=== PATIENT | female | born 1990 | race African-American/Black ===

== ENCOUNTER 2018-11-17 13:36 | Inpatient (IN) | payer BC ==
[~2018-11-17] VITALS: Ht 175.3 cm; Wt 83.5 kg
[2018-11-17 13:38] VITALS: BP 157/92
[2018-11-17 13:55] LABS: URINE BLOOD 3+ (Negative); URINE CLARITY SL CLOUDY; URINE COLOR YELLOW; URINE GLUCOSE-RANDOM* NEGATIVE (Negative); URINE KETONES TRACE (Negative); URINE LEUKOCYTES TRACE (Negative); URINE NITRITE NEGATIVE (Negative); URINE PROTEIN (DIPSTICK) 2+ (Negative); URINE SPECIFIC GRAVITY 1.025 (1.005-1.035)
[2018-11-17 14:00] LABS: HEMATOCRIT 29.6 % (37.0-47.0); MCH 21.8 pg (26.0-34.0); MCHC 30.5 g/dL (28.0-37.0); MCV 71.5 fL (80.0-100.0); PLATELET COUNT 409 thou/uL (150-400); RBC 4.14 mil/uL (4.20-5.00); RDW 22.7 % (10.5-14.5); WBC 20.2 thou/uL (4.0-11.0)
[2018-11-17 14:00] LABS: ICTOTEST (BILI CONFIRMATORY) Negative (Negative); URINE BILIRUBIN NEGATIVE (Negative)
[2018-11-17 14:06] LABS: CALCIUM 9.6 mg/dL (8.5-10.1); CREATININE 1.1 mg/dL (0.6-1.0); POTASSIUM 3.6 mmol/L (3.5-5.1)
[2018-11-17 14:12] LABS: ALBUMIN 3.2 g/dL (3.4-5.0); TOTAL BILIRUBIN 0.5 mg/dL (<0.1-1.0); TOTAL PROTEIN 8.5 g/dL (6.4-8.2)
[2018-11-17 14:28] LABS: CASTS None Seen /LPF (None Seen); CRYSTALS None Seen /LPF (None Seen); SQUAMOUS >10 Many /LPF (0-3)
[2018-11-17 14:31] LABS: URINE RBC 0-2 Rare /HPF (0-2); URINE WBC 6-15 Few /HPF (0-5)
[2018-11-17 14:35] LABS: ABSOLUTE NEUTROPHILS 17.4 thou/uL (1.4-8.2); OVALOCYTES FEW
[2018-11-17 14:36] LABS: ANISOCYTOSIS 3+; HYPOCHROMASIA 2+; MICROCYTES 1+
[2018-11-17] MEDS ORDERED: LABETALOL HCL100 MG PO (16:44)
[2018-11-17] MEDS ORDERED: NORCO 5-325 TA1 EAC1 PO (20:46)
[2018-11-17] MEDS ORDERED: ZOFRAN ODT4 MG DISSOLVE (20:46)
[2018-11-17 22:49] VITALS: BP 160/93
[2018-11-17 22:55] VITALS: BP 149/102
[2018-11-18 04:00] VITALS: BP 129/85
--- NOTE | 2018-11-18 04:35 | NUR ---
PT ARRIVED TO UNIT APPROX 2300, ABLE TO WALK FROM ER CART TO BED. ADMISSION AND ASSESSMENT COMPLETED, CONSENTS SIGNED. PT A&Ox4, UP AD RONIT IN ROOM. PT REPORTS MODERATE, GENERALIZED ABD PAIN; STATES THE NORCO GIVEN IN ED HELPED THE PAIN BUT ALSO GAVE HER NAUSEA. GIVEN DOSE OF ZOFRAN AFTER ARRIVING TO THE FLOOR. DENIES SOB. SKIN INTACT. IV FLUIDS STARTED. HAS BEEN ST ON TELE, HR ABOUT 105 AT REST, THEN RISING TO 120'S WHEN WALKING TO TOILET. BP SLIGHTLY ELEVATED, PT REPORTS NOT HAVING HER SECOND DOSE OF BP MED; OBTAINED ORDER AND GAVE DOSE ABOUT 0030. PT WENT FOR A STAT CT SCAN OF CHEST TO R/O PE, SCAN CAME BACK NEGATIVE, RESULTS REPORTED TO NURSE PRACTIONER. NO OTHER CONCERNS, WILL CONTINUE TO MONITOR.
[2018-11-18 05:36] LABS: HEMATOCRIT 28.1 % (37.0-47.0); HEMOGLOBIN 8.6 gm/dL (12.0-15.0); MCHC 30.6 g/dL (28.0-37.0); MCV 71.8 fL (80.0-100.0); PLATELET COUNT 386 thou/uL (150-400); RBC 3.91 mil/uL (4.20-5.00); RDW 22.6 % (10.5-14.5); WBC 20.6 thou/uL (4.0-11.0)
[2018-11-18 07:01] LABS: ABSOLUTE NEUTROPHILS 16.7 thou/uL (1.4-8.2)
[2018-11-18 07:04] LABS: ANISOCYTOSIS 2+; HYPOCHROMASIA 1+; OVALOCYTES FEW
[2018-11-18 09:53] LABS: % SATURATION 5 % (20-39); IRON 11 ug/dL (50-170); TIBC 228 ug/dL (250-450)
[2018-11-18 10:20] LABS: FOLIC ACID 13.4 ng/mL (8.6-58.9)
[2018-11-18 15:25] VITALS: BP 139/85
[2018-11-18 19:07] VITALS: BP 146/98
--- NOTE | 2018-11-18 20:11 | NUR ---
PATIENT REPORTS LLQ PAIN 7/10 THAT IS FAIRLY WELL CONTROLLED WITH NORCO...
[2018-11-19 01:09] LABS: HEPATITIS C VIRUS AB <0.1 (0.0-0.9); HIV ANTIBODY Non Reactive (Non Reactive)
[2018-11-19 04:42] VITALS: BP 138/81
[2018-11-19 07:15] VITALS: BP 137/80
--- NOTE | 2018-11-19 07:34 | NUR ---
ASSUMED CARE AT 1900, ASSESSMENT COMPLETED. PT REPORTS MODERATE LLQ ABD PAIN, REQUESTES PRN PAIN MEDS ABOUT EVERY 5 HOURS. C/O POOR APPETITE WITH MILD NAUSEA, BUT DECLINED ANTI-EMETICS OVERNIGHT. DENIES SOB. STEADY ON FEET, UP AD RONIT IN ROOM. NEW IV STARTED IN RIGHT FA, IV FLUIDS AND ABX INFUSING OVERNIGHT. NO OTHER CONCERNS, SHIFT REPORT GIVEN AT 0700.
[2018-11-19 15:56] VITALS: BP 150/93
--- NOTE | 2018-11-19 17:06 | HC ---
[facility] [place] [address] CONSULTATION Name: FARHAD ROSAS Room #: 349-I ADM IN M.R.#: [id number] Admission: 11/17/18 Attend Phys: Srinivasan Tiwari MD Discharge: Date of : 89 Report #: [id number] THIS REPORT FOR: //name// CC: FAM unknown Srinivasan Tiwari DATE OF SERVICE: 11/18/2018 INFECTIOUS DISEASES CONSULTATION REASON FOR CONSULTATION: Evaluate possible pelvic infection. HISTORY OF PRESENT ILLNESS: The patient is a 28-year-old who presented with acute onset of abdominal pain that has lasted approximately 3 days. She does have a history of endometriosis. She is in the middle of her menstrual cycle when she developed left lower quadrant abdominal pain typical for her endometriosis, but this time it worsened along with low-grade fever. No chills or sweats. The pain again is sharp in nature, fluctuates in intensity, improved with narcotics for pain. Worsened with BMs. No dysuria. No blood in her stool or urine. Her menstrual flow did not have an odor. She has ceased menstruation. Now is having some loose stools after she took a laxative. Following admission, she was placed on ceftriaxone. She has remained afebrile. Pain is a bit more manageable. REVIEW OF SYSTEMS: Skin, lymph, cardiopulmonary, neuro, joints unremarkable. Full 10-point review was negative other than what is described above. She describes no STD risk factors. test was negative. She was seen by Dr. Valarie Hairston 2 days prior to admission and she was scheduled for left fallopian tube removal. ALLERGIES: None known. MEDICATIONS: As noted on MAR including ceftriaxone. PAST MEDICAL HISTORY: Hypertension, endometriosis surgery. FAMILY HISTORY: Noncontributory. SOCIAL HISTORY: Nonsmoker, minimal alcohol intake. PHYSICAL EXAMINATION: VITAL SIGNS: Afebrile and hemodynamically stable. GENERAL: She is alert and cooperative and pleasant, in no acute distress. SKIN: Without rash or decubitus. No palpable adenopathy. [facility] [address] [place] [address] CONSULTATION Name: FARHAD ROSAS Room #: 349-I ADM IN .R.#: [id number] Admission: 11/17/18 Attend Phys: Srinivasan Tiwari MD Discharge: Date of : 89 Report #: [id number] EYES: Without scleral icterus. MOUTH: Without mucositis. NECK: Supple. LUNGS: Clear. HEART: Regular, without murmur. ABDOMEN: Soft with tenderness in the left lower quadrant. No mass or hepatosplenomegaly identified. No CVA tenderness. GENITAL AND RECTAL: Not performed. She is to be seen by Gynecology this afternoon. EXTREMITIES: Without clubbing, cyanosis or edema. NEUROLOGIC: Cranial nerves were intact. Strength in the upper and lower extremities was normal. Sensation upper and lower extremities normal. LABORATORY STUDIES: Sodium 139, potassium 3.6, bicarbonate 26, creatinine 1.1. Liver function tests normal. Serum test was negative. D-dimer 2.5. Hemoglobin 9, WBC 20, platelet count 209,000, 86% segs. Urinalysis, 16-15 wbc's, moderate bacteria. CT scan of the abdomen and pelvis showed bilateral complex masses to the adnexa with the left adnexa revealing changes consistent with hydrosalpinx, minimal fluid in the pelvis. Ultrasound showed no further information. IMPRESSION: A 28-year-old with: 1. Pelvic pain in the setting of known endometriosis concerning for possible pelvic inflammatory disease. She has associated leukocytosis, which I suspect is related to this process. 2. Hypertension. 3. Iron deficiency anemia by history. RECOMMENDATIONS: We will continue with Zosyn, doxycycline. Await Gynecology evaluation for pelvic examination. We will follow her white count and await further studies. <ELECTRONICALLY SIGNED> By: Taye Vaughn MD 11/19/18 1706 [id number] 0045 Taye Vaughn MD /nt
[2018-11-19 19:31] VITALS: BP 150/91
--- NOTE | 2018-11-19 20:25 | NUR ---
PT CONTINUES TO HAVE PAIN LLQ 6-10/06...IT IS PARTIALLY RELIEVED WITH NORCO...SHE DID EXPERIENCE A FEVER AGAIN TODAY @ 1400 OF 102.6...
--- NOTE | 2018-11-20 02:17 | NUR ---
ASSUMED CARE OF PATIENT AT 1900. VSS, SLIGHT TEMP THIS EVENING. PAIN BEING CONTROLLED WITH PRN MEDS. CALLS OUT APPROPRIATELY. UPDATED TO POC. NO S/S OF DISTRESS. PROGRESSING SLOWLY TOWARDS POC GOALS.
[2018-11-20 03:37] VITALS: BP 144/80
[2018-11-20 07:24] VITALS: BP 156/95
[2018-11-20 15:37] VITALS: BP 162/96
--- NOTE | 2018-11-20 17:32 | NUR ---
ASSUMED CARE OF PATIENT AT 0700. MAIN OBJECTIVES THIS SHIFT WERE PAIN MANAGEMENT, IV ANTIBIOTICS, MONITORING VITAL SIGNS ESPECIALLY TEMP, WELL SALES PROMOTION MANAGER CONSULT. PATIENT REMAINED AFIBRILE DURING MY SHIFT. PATIENT HAD RELATIVELY HIGH BP'S BUT NOT ENOUGH FOR HYDRALIZINE INTERVENTION. PATIENT HAD CONSULT WITH SALES PROMOTION MANAGER WHOM IS CONSULTING IR FOR POSSIBLE CULTURE OF FLUID WITHIN FALLOPIAN TUBE.
[2018-11-20 19:09] LABS: SYPHILIS AB Negative (Negative)
[2018-11-20 19:12] VITALS: BP 153/98
[2018-11-21 04:08] VITALS: BP 162/106
--- NOTE | 2018-11-21 04:17 | NUR ---
PT MAKING SLOW PROGRESS TOWARDS GOALS. PO PAIN MEDICATION GIVEN PER ORDERS. PT REPORTING PAIN 7-8/10 WHEN GIVEN PAIN MEDICATION AND REPORTING RELIEF DOWN TO ONE OR TWO OUT OF TEN BUT USUALLY GREATER THAN ONE HOUR LATER. X1 DOSE OF ZOFRAN FOR SUDDEN NAUSEA WITH REPORTED EMESIS OVERNIGHT.
[2018-11-21 05:49] LABS: HEMATOCRIT 25.5 % (37.0-47.0); HEMOGLOBIN 7.9 gm/dL (12.0-15.0); MCH 21.6 pg (26.0-34.0); MCHC 30.9 g/dL (28.0-37.0); MCV 69.8 fL (80.0-100.0); PLATELET COUNT 441 thou/uL (150-400); RBC 3.65 mil/uL (4.20-5.00); RDW 22.1 % (10.5-14.5)
[2018-11-21 08:00] VITALS: BP 150/95
[2018-11-21 08:47] LABS: ABSOLUTE NEUTROPHILS 12.8 thou/uL (1.4-8.2); NUCLEATED RBCS 1 /100WBC; PLATELET ESTIMATE NORMAL
[2018-11-21 08:48] LABS: ANISOCYTOSIS 2+; HYPOCHROMASIA 2+; MICROCYTES 2+
--- NOTE | 2018-11-21 14:59 | NUR ---
INITIAL ASSESSMENT: SW reviewed chart and spoke with nursing and attending physician. Pt was admitted from home due to abdominal pain/leukocytosis. Pt with bilateral cystic pelvic masses, likely PID. Pt with hx of endometriosis. IR consulted for possible drainage. Pt is currently on IV abx. Awaiting input from physicians at this time. Pt is alert/orientated x 4 and lives at home. Plan is for pt to return home when medically stable. SW is following to assist as needed with discharge planning.
[2018-11-21 15:00] VITALS: BP 159/105
[2018-11-21] MEDS ORDERED: DIFLUCAN150 MG PO (16:51)
[2018-11-21] MEDS ORDERED: CLEOCIN HCL150 MG PO (16:51)
[2018-11-21 17:45] VITALS: BP 159/105
--- NOTE | 2018-11-21 18:53 | NUR ---
Patient received discharge instructions and paper scripts. She is discharged.
== END 2018-11-21 19:15 | disposition home or self-care (01) | DRG 872 ==
LOC: ER 13:36 → 3W 21:17 → EROBS 21:17 → 3W 23:28
PROVIDERS: Nurse Practitioner Acute Care; Physician Assistant; Specialist; ADMIT Internal Medicine
DX: A41.9 Sepsis, unspecified organism (principal); N73.9 Female pelvic inflammatory disease, unspecified; D64.9 Anemia, unspecified; E86.0 Dehydration; R65.10 Systemic inflammatory response syndrome (SIRS) of non-infectious origin without acute organ dysfunction; I10 Essential (primary) hypertension; N70.11 Chronic salpingitis; N70.91 Salpingitis, unspecified; N80.9 Endometriosis, unspecified; Z79.1 Long term (current) use of non-steroidal anti-inflammatories (NSAID); Z79.899 Other long term (current) drug therapy
CPT/HCPCS: 10879